=== PATIENT | female | born 1925 | race Caucasian/White ===

== ENCOUNTER → 2016-06-21 | Day surgery (SDC) | payer MEDICARE, OTHER ==
[~2016-06-21] MED LIST: ACTOS15 MG PO; ALPRAZOLAM PO; ASPIRIN PO; ATORVASTATIN CA40 MG PO; BAYER ASPIRIN325 M1 PO; BAYER CHEWABLE81 MG PO; EFFEXOR PO; FERRO-TIME325 MG PO; FISH OIL 1,2001 CAP PO; GABAPENTIN300 M2 PO; GLIPIZIDE10 MG PO; GLUCOPHAGE500 M1 PO; IBUPROFEN600 MG PO; LANSOPRAZOLE30 M2 PO; LEVOXYL50 MC1 PO; LIPITOR40 MG PO; LUMIGAN2.5 ML OD; METFORMIN PO; MIRTAZAPINE7.5 MG PO; SYNTHROID; SYNTHROID0.05 MG PO; TEMAZEPAM30 MG PO; VITAMIN D35000 UNIT PO; VITAMIN E400 UNI2 PO
--- NOTE | ~2016-06-21 | OR ---
Unit #: [id number] #: [id number] Patient: DANNY BONE [id number] [address] [place], [place] [address] [id number] O MR#: [id number] NAME: DANNY BONE ROOM: Date of Procedure: 06/21/2016 Admission Date: 06/21/2016 Surgeon: Steven Garzon M.D. : 1925 Attending Physician: Steven Garzon M.D. [facility] OPERATIVE NOTE PROCEDURE PERFORMED Lumbar epidural steroid injection under x-ray guided needle placement. PREOPERATIVE DIAGNOSES 1. Acute lumbar radiculitis. 2. Spinal stenosis, lumbosacral spine. 3. Degenerative joint disease, lumbosacral spine. 4. Degenerative disk disease, lumbosacral spine. INDICATIONS FOR PROCEDURE The patient presents today with an approximately 3 to 6 month history of right-sided radicular pain secondary to her underlying degenerative processes. This pain is not responded to conservative treatment. After discussing risks and benefits of proceeding today with lumbar approach epidural steroid injection and return on 07/07/2016 for a potential second lumbar epidural steroid injection, the patient agreed this would be the appropriate course of action. DESCRIPTION OF PROCEDURE She was then taken to the operating room, where she was prepped and draped in a sterile manner. Standard monitors were applied. She refused all forms of sedation and lumbar epidural space accessed at the L4-L5 level using loss of resistance technique and x-ray guidance. Needle placed confirmed with injection of 2 mL of Omnipaque. Approximately 60% to 80% of dye flow was in the inferior direction at this L4-L5 placement. Following successful needle placement confirmation, the patient received an injectate containing 4 mL normal saline and 80 mg of methylprednisolone. She tolerated this procedure well. She was discharged home with followup instructions, which include return dates as described above. Dictated by... Giovana Ramirez/sima TD: 06/22/2016 00:53 JOB #: [id number] CC: Lul Renee M.D. Unit #: [id number] #: [id number] Patient: DANNY BONE SURG[facility] OPERATIVE NOTE X Devan Garzon MD PROCEDURE OPERATIVE NOTE
== END | disposition home or self-care (01) ==
LOC: CCSC 08:42
DX: M47.27 Other spondylosis with radiculopathy, lumbosacral region (principal); M51.17 Intervertebral disc disorders with radiculopathy, lumbosacral region; M48.07 Spinal stenosis, lumbosacral region; K21.9 Gastro-esophageal reflux disease without esophagitis; M19.90 Unspecified osteoarthritis, unspecified site; Z96.643 Presence of artificial hip joint, bilateral; Z88.8 Allergy status to other drugs, medicaments and biological substances
CPT/HCPCS: J1040; J2250

== ENCOUNTER → 2016-08-09 | Day surgery (SDC) | payer MEDICARE, OTHER ==
--- NOTE | ~2016-08-09 | OR ---
Unit #: [id number] #: [id number] Patient: DANNY BONE [id number] [address] [place], [place] [address] [id number] O MR#: [id number] NAME: DANNY BONE ROOM: Date of Procedure: 08/09/2016 Admission Date: 08/09/2016 Surgeon: Steven Garzon M.D. : 1925 Attending Physician: Steven Garzon M.D. [facility]ENTER OPERATIVE NOTE PROCEDURE PERFORMED Lumbar epidural steroid injection under x-ray guided needle placement. PREOPERATIVE DIAGNOSES 1. Acute lumbar radiculitis. 2. Spinal stenosis, lumbosacral spine. 3. Degenerative joint disease, lumbosacral spine. 4. Degenerative disk disease, lumbosacral spine. INDICATIONS FOR PROCEDURE The patient presents status post one previous lumbar approach epidural steroid injection for an acute radiculitis, which had failed to respond to conservative therapy. The patient states she got great results for almost complete resolution of her symptoms initially. However, over the interval time between her initial presentation and today her pain has returned to the point that she is again experiencing discomfort which has interfered with her activities of daily living and requests an epidural steroid injection. After discussing risks and benefits of proceeding today with a dual needle access technique, the patient agreed this would be the appropriate course of action. DESCRIPTION OF PROCEDURE She was then taken to the operating room, where she was prepped and draped in a sterile manner. Standard monitors were applied. She refused all forms of sedation and lumbar epidural space was accessed at the L5-S1 and L3-L4 levels using loss of resistance technique and x-ray guidance. Needle placement was confirmed with the injection of 2 mL of Omnipaque at each level. Dye flow at the L5-S1 was approximately equal in the superior and inferior direction and at the L3-L4 placement, there was approximately 80% in the superior direction. Total x-ray time for this dual needle placement was 10 seconds. Following successful needle placement confirmation, the patient received an injectate containing 4 mL of normal saline and 40 mg of methylprednisolone at each level for a total injected volume of 8 mL of normal saline and 80 mg of methylprednisolone. She tolerated this procedure well. She was discharged home with followup instructions, which include an offer to return to this clinic as early as 11/15/2016 if we could be of further service to her. She was instructed if she was asymptomatic at that time to not keep that appointment, and simply follow up with us, her referring provider, and/or her primary care provider should she have further need of our services. Dictated by... Unit #: [id number] #: [id number] Patient: DANNY BONE Giovana Ramirez/sima TD: 08/10/2016 00:42 JOB #: [id number] CC: Lul Renee M.D. [facility]ENTER OPERATIVE NOTE Page 1 of 1 X Devan Garzon MD X PROCEDURE OPERATIVE NOTE
== END | disposition home or self-care (01) ==
LOC: CCSC 10:50
DX: M47.27 Other spondylosis with radiculopathy, lumbosacral region (principal); M51.17 Intervertebral disc disorders with radiculopathy, lumbosacral region; M48.07 Spinal stenosis, lumbosacral region; K21.9 Gastro-esophageal reflux disease without esophagitis; E03.9 Hypothyroidism, unspecified; M19.90 Unspecified osteoarthritis, unspecified site; Z95.1 Presence of aortocoronary bypass graft
CPT/HCPCS: J1040; J2250

== ENCOUNTER → 2016-10-11 | Outpatient (CLI) | payer MEDICARE, OTHER ==
--- NOTE | ~2016-10-11 | MY11 ---
[facility] A Service of [facility] RADIOLOGY TEXT RESULTS PATIENT: DANNY BONE LOCATION: [facility] : [birth year] UNIT #: [id number] AGE: [address]: Krishna Duncan MD SEX: F ORDER DR: [id number] [address] [address] [id number] O MR#: [id number] Acc #: [id number] NAME: DANNY BONE : 1925 SEX: F STUDY DATE/TIME: 10/11/2016 11:12 UNIT: [facility] ROOM: STUDY DESCRIPTION: MY Mammogram Screening [place] Attending Physician: Krishna Duncan M.D. Referring Physician: Krishna Duncan M.D. Ordering Physician: Krishna Duncan M.D. Primary Care Physician: Krishna Duncan M.D. MEDICAL IMAGING REPORT This report is preliminary unless electronic signature is present. EXAM Digital screening mammogram, 10/11/2016, [facility]. HISTORY 89-year-old woman no risk elevation. Prior left breast biopsy. Annual screen. COMPARISON Mammograms 04/01/2014, 05/05/2015. TECHNIQUE Digital imaging of each breast was completed utilizing screening protocol. Review includes FDA-approved CAD device. FINDINGS Breast parenchyma is moderately dense and heterogeneous with residual bilateral parenchymal opacities present. There are scattered benign calcifications in each breast. I see no interval occurring breast mass. There are no suspicious microcalcifications and no architectural deformity. Subareolar duct prominence is noted in each breast. IMPRESSION Stable benign mammogram. Annual screening recommended. Patients over the age of 40 are entered into a reminder system with target due date for the next mammogram. A result letter will also be sent to the patient. BIRADS: 2 Benign finding. [facility] A Service [facility] RADIOLOGY TEXT RESULTS PATIENT: DANNY BONE LOCATION: [facility] : [birth year] UNIT #: [id number] AGE: [address]: Krishna Duncan MD SEX: F ORDER DR: Dictated by... Gregg Maria M.D. THIS IS AN ELECTRONICALLY VERIFIED REPORT Gregg Maria M.D. at 10/15/2016 8:12 AM LYN/kraig TD: 10/14/2016 17:26 JOB #: [id number] MEDICAL IMAGING REPORT Page 1 of 1
== END | disposition home or self-care (01) ==
LOC: SMAM 10:19
DX: Z12.31 Encounter for screening mammogram for malignant neoplasm of breast (principal)
CPT/HCPCS: G0202

== ENCOUNTER → 2016-11-15 | Day surgery (SDC) | payer MEDICARE, OTHER ==
--- NOTE | ~2016-11-15 | OR ---
Unit #: [id number] #: [id number] Patient: DANNY BONE [id number] [address] [place], [place] [address] [id number] O MR#: [id number] NAME: DANNY BONE ROOM: Date of Procedure: 11/15/2016 Admission Date: 11/15/2016 Surgeon: Steven Garzon M.D. : 1925 Attending Physician: Devan Garzon Primary Care Physician: Krishna Duncan M.D. [facility]ENTER OPERATIVE NOTE PROCEDURE PERFORMED Lumbar epidural steroid injection under x-ray guided needle placement. PREOPERATIVE DIAGNOSIS 1. Acute lumbar radiculitis. 2. Spinal stenosis, lumbosacral spine. 3. Degenerative joint disease, lumbosacral spine. 4. Degenerative disk disease, lumbosacral spine. INDICATIONS FOR PROCEDURE The patient presents today with longstanding history of chronic lumbar radicular pain right greater than left, which has failed to respond to ongoing continuous medical management, which includes medications and self-directed physical activity. She is status post 2 epidural steroid injections approximately 3 to 4 months ago. She states she got approximately 60% relief for 6 to 8 weeks. However, she feels this was an inadequate amount of relief with the initial one and return of her pain now advancing in a crescendo pattern and breaking through her ongoing conservative management as our concern to the point that she desires another epidural steroid injection. After discussing risks and benefits of proceeding today with a lumbar approach epidural steroid injection, the patient agreed this would be the appropriate course of action. DESCRIPTION OF PROCEDURE She was then taken to the operating room, where she was prepped and draped in a sterile manner. Standard monitors were applied. She refused all forms of sedation and lumbar epidural space accessed at the L4-L5 level using loss of resistance technique and x-ray guidance. Needle placement was confirmed with injection of 2 mL of Omnipaque. All dye flow at this level was in the inferior direction. Given this, the patient received an injectate containing 2 mL normal saline and 40 mg of methylprednisolone. Needle was withdrawn. There was a second prep and drape, and the lumbar epidural space accessed at the L2-L3 level using loss of resistance technique and x-ray guidance. Again, needle placement was confirmed with injection of 2 mL of Omnipaque. There was good superior and inferior flow at this L2 level access point. Following successful needle placement confirmation at the L2-L3 level, the patient received the remainder injectate which at this point containing 4 mL normal saline and 40 mg of methylprednisolone. She tolerated the today's procedure well. She was discharged home with followup instructions which include return to this clinic on 02/23/2017. Total x-ray time for today's procedure was 15 seconds. Unit #: [id number] #: [id number] Patient: DANNY BONE Dictated by... Steven Garzon M.D. JRG/modl TD: 11/15/2016 14:50 JOB #: [id number] CC: Lul Renee M.D. [facility] OPERATIVE NOTE Page 1 of 1 X Devan Garzon MD X PROCEDURE OPERATIVE NOTE
== END | disposition home or self-care (01) ==
LOC: CCSC 13:09
DX: G89.29 Other chronic pain (principal); M51.17 Intervertebral disc disorders with radiculopathy, lumbosacral region; M47.27 Other spondylosis with radiculopathy, lumbosacral region; M48.07 Spinal stenosis, lumbosacral region; E03.9 Hypothyroidism, unspecified; K21.9 Gastro-esophageal reflux disease without esophagitis; M19.90 Unspecified osteoarthritis, unspecified site; Z88.1 Allergy status to other antibiotic agents; Z88.8 Allergy status to other drugs, medicaments and biological substances; Z79.4 Long term (current) use of insulin; Z79.899 Other long term (current) drug therapy; Z90.710 Acquired absence of both cervix and uterus; Z90.49 Acquired absence of other specified parts of digestive tract; Z96.653 Presence of artificial knee joint, bilateral; Z95.1 Presence of aortocoronary bypass graft; Z98.1 Arthrodesis status; Z98.890 Other specified postprocedural states
CPT/HCPCS: J1040; J2250